=== PATIENT | female | born 1940 | race Hispanic/Latino ===

== ENCOUNTER 2019-12-21 09:58 | Outpatient (CLI) | payer MEDICARE ==
--- NOTE | 2019-12-21 12:31 | Cat Scan Report ---
CT CHEST, ABDOMEN, AND PELVIS WITHOUT IV CONTRAST INDICATION: DIFFUSE NONHODGKIN'S LYMPHOMA LARGE CELL. COMPARISON: CT abdomen/pelvis 09/22/2018. No prior chest CTs. TECHNIQUE: All CT scans at this location are performed using CT dose reduction for ALARA by means of automated e xposure control. Axial CT images were obtained through the chest, abdomen, and pelvis. FINDINGS: Skeletal System: No acute abnormality. CHEST: Heart: There is mild left atrial enlargement. Advanced coronary artery calcification is noted. Thoracic Aorta: No acute abnormality. Mediastinum & Juliette: No significant abnormality. Lungs: No acute air space or interstitial disease. Pleura: No significant pleural effusion. No pneumothorax. Airways: No significant abnormality. Additional Findings: Clips are noted in the left axilla. There is a coarse calcification in the right thyroid lobe. ABDOMEN: Liver: No significant abnormality. Gallbladder: No significant abnormality. Bile Ducts: No significant abnormality. Pancreas: No significant abnormality. Spleen: No significant abnormality. Adrenals: No significant abnormality. Right Kidney and Proximal Ureter: No significant abnormality. Left Kidney and Proximal Ureter: No significant abnormality. Stomach and Bowel: No significant abnormality. Lymph Nodes: No significant adenopathy. Aorta: No significant abnormality. IVC: No significant abnormality. Additional Findings: None. PELVIS: Urinary Bladder and Distal Ureters: No significant abnormality. Appendix: No significant abnormality. Colon: No significant abnormality. Free Fluid: None. Lymph Nodes: No significant adenopathy. Additional Findings: None. IMPRESSION: 1. No adenopathy. Given noncontrast technique, no acute solid organ abnormality. 2. Incidental findings as above. Signer Name: Van Melendez MD Signed: 12/21/2019 12:27 PM Workstation Name: [id number]
== END 2019-12-21 09:59 | disposition home or self-care (01) ==
LOC: CT 09:58
PROVIDERS: ATTEND Internal Medicine Hematology & Oncology
DX: I25.10 Atherosclerotic heart disease of native coronary artery without angina pectoris (principal); C83.38 Diffuse large B-cell lymphoma, lymph nodes of multiple sites; C80.1 Malignant (primary) neoplasm, unspecified; E07.9 Disorder of thyroid, unspecified
CPT/HCPCS: 71250; 74176

== ENCOUNTER 2021-02-12 10:06 | Outpatient (CLI) | payer MEDICARE ==
--- NOTE | 2021-02-12 12:12 | Cat Scan Report ---
CT ABDOMEN AND PELVIS WITHOUT CONTRAST HISTORY: MAIN. Non-Hodgkin's lymphoma COMPARISON: 12/21/2019 TECHNIQUE: CT images of the abdomen and pelvis were obtained without contrast. All CT scans at this [facility] are performed using CT dose reduction for ALARA by means of automated exposure control. CONTRAST: 100 ml of intravenous contrast administered. FINDINGS: Lungs/bones: Chronic changes in the lung bases without acute findings. Abdomen/pelvis: Within limits of a noncontrast exam the liver, spleen and adrenal glands appear norm al. Pancreas appears normal. Calcifications/densities seen in the liver hilum. Gallbladder is not def initely seen. There may be postoperative change since prior exam. Mild inflammation surrounding the k idneys. Right renal exophytic cyst is unchanged. Mild stranding in the mid abdominal mesentery with s mall nodes have no dominant adenopathy. No acute bowel abnormalities seen. Diffuse osteopenia and deg enerative changes seen throughout spine IMPRESSION: 1. No new adenopathy or evidence for recurrent disease. 2. Calcifications/densities in the liver hilum could be secondary to prior gallbladder surgery. [facility] correlation. 3. Mild inflammation surrounding the kidneys appears chronic. Exophytic right renal cyst. 4. Degenerative change with osteopenia throughout spine. Signer Name: Carlitos Morris MD Signed: 02/12/2021 12:07 PM Workstation Name: [id number]
--- NOTE | 2021-02-12 13:41 | Mammography Report ---
DIGITAL SCREENING MAMMOGRAM WITH CAD, 02/12/2021 CLINICAL INFORMATION / INDICATION: Routine screening mammography. TECHNIQUE: Digital bilateral 2D mammography was obtained in the craniocaudal and mediolateral obliqu e projections. This examination was interpreted with the benefit of Computer-Aided Detection analysis . COMPARISON: None available. FINDINGS: Breast Density: The right breast is heterogeneously dense, which may obscure small masses. The left b reast is almost entirely replaced by fat. No dominant mass, suspicious calcifications, or architectural distortion in either breast. Benign calcifications are present bilaterally with clips noted along the left axilla. IMPRESSION: No mammographic evidence of malignancy. Follow up recommendation: Routine yearly BI-RADS Category 2: Benign. A "normal" or negative report should not discourage follow up or biopsy of a clinically significant f inding. A written summary of these findings will be mailed to the patient. The patient will be entered into a mammography reporting system which will generate a reminder letter for the patient's next appointmen t at the appropriate interval. The [employer] recommends yearly mammograms starting at age 40 and continuing as l singh as a woman is in good health. Breast MRI is recommended for women with an approximate 20-25% or greater lifetime risk of breast cancer, including women with a strong family history of breast or ova braxton cancer or who have been treated for Hodgkin's disease. Signer Name: Valentín Roberto MD Signed: 02/12/2021 1:36 PM Workstation Name: [id number]
== END 2021-02-12 10:07 | disposition home or self-care (01) ==
LOC: CT 10:06
DX: Z12.31 Encounter for screening mammogram for malignant neoplasm of breast (principal); C85.80 Other specified types of non-Hodgkin lymphoma, unspecified site; K82.9 Disease of gallbladder, unspecified; K76.9 Liver disease, unspecified; M47.819 Spondylosis without myelopathy or radiculopathy, site unspecified
CPT/HCPCS: 74176; 77067

== ENCOUNTER 2022-02-24 11:55 | Outpatient (CLI) | payer MEDICARE ==
--- NOTE | 2022-02-24 14:38 | Ultrasound Report ---
ULTRASOUND ABDOMEN, COMPLETE INDICATION: GALLBLADDER DISEASE. COMPARISON: 03/21/2020. FINDINGS: Pancreas: No significant abnormality. Abdominal Aorta: No significant abnormality. IVC: No significant abnormality. Liver: The liver measures 11.4 cm in length. No significant abnormality. Normal hepatopedal blood fl ow in the main portal vein. Gallbladder: Surgically removed. Bile ducts: No significant abnormality. Common bile duct measures 2 mm. Kidneys: Right: 9.8 cm in length. 2 cm cyst is noted near the lower pole, otherwise unremarkable. L eft: 10.2 cm in length. No significant abnormality. There appears to be a prominent dromedary hump near mid pole. Spleen: No significant abnormality. Free fluid: None. Additional Findings: None. IMPRESSION: No acute abnormality is detected. The gallbladder has been surgically removed. No biliary dilatation. Right renal cyst.. Signer Name: Rl Greogry Jr, MD Signed: 02/24/2022 2:34 PM Workstation Name: [id number]
--- NOTE | 2022-02-26 09:42 | Mammography Report ---
DIGITAL SCREENING MAMMOGRAM WITH CAD, 02/24/2022 CLINICAL INFORMATION / INDICATION: Routine screening mammography. SCRENNING MAMMOGRAM TECHNIQUE: Digital bilateral 2D mammography was obtained in the craniocaudal and mediolateral obliqu e projections. This examination was interpreted with the benefit of Computer-Aided Detection analysis . COMPARISON: 02/12/2021 FINDINGS: Breast Density: There are scattered areas of fibroglandular density. No dominant mass, suspicious calcifications, or architectural distortion in either breast. 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 Postreduction changes are noted o n the right. Arterial vascular calcifications are noted IMPRESSION: No mammographic evidence of malignancy. Follow up recommendation: Routine yearly BI-RADS Category 2: BENIGN. A "normal" or negative report should not discourage follow up or biopsy of a clinically significant f inding. A written summary of these findings will be mailed to the patient. The patient will be entered into a mammography reporting system which will generate a reminder letter for the patient's next appointmen t at the appropriate interval. The [employer] recommends yearly mammograms starting at age 40 and continuing as l singh as a woman is in good health. Breast MRI is recommended for women with an approximate 20-25% or greater lifetime risk of breast cancer, including women with a strong family history of breast or ova braxton cancer or who have been treated for Hodgkin's disease. Signer Name: Brian Hopper MD Signed: 02/26/2022 9:38 AM Workstation Name: [id number]
== END 2022-02-24 11:56 | disposition home or self-care (01) ==
LOC: MAMMO 11:55
PROVIDERS: ATTEND Internal Medicine Hematology & Oncology
DX: Z12.31 Encounter for screening mammogram for malignant neoplasm of breast (principal); K82.9 Disease of gallbladder, unspecified; N28.1 Cyst of kidney, acquired
CPT/HCPCS: 76700; 77067